=== PATIENT | male | born 1990 | race Caucasian/White ===

== ENCOUNTER 2020-06-05 01:16 | Emergency (ER) | payer OTHER, SELFPAY ==
[2020-06-05 01:17] VITALS: BP 114/69; PULSE 101; RESP 16; TEMP 36.1; O2SAT 95; BMI 23.7
--- NOTE | 2020-06-05 01:28 | RAD_ITS ---
STUDY: X-RAY - ABDOMEN/PELVIS REASON FOR EXAM: Male, 29 years old. Abdominal pain TECHNIQUE: Single AP view of the abdomen / pelvis. COMPARISON: None. FINDINGS: Normal visualized lung bases. There is an unremarkable bowel gas pattern. There is no demonstrated free abdominal air. The visualized liver, spleen and kidneys are grossly normal in size and morphology. Normal soft tissue structures. Normal visualized osseous structures. RAD/Abdomen Single View IMPRESSION: Normal x-ray examination of the abdomen and pelvis. Electronically Signed: Jamie Munoz MD at 2:02 EST Tel , Service support ,
--- NOTE | 2020-06-05 01:45 | CT_ITS ---
STUDY: CT ABDOMEN AND PELVIS WITH CONTRAST REASON FOR EXAM: Male, 29 years old. Bloody diarrhea. History of Crohn''s disease RADIATION DOSAGE (If Supplied By Facility): CTDIvol = ( 9.84 ) mGy, DLP = ( 473.04 ) mGycm TECHNIQUE: Transaxial images were obtained from the dome of the diaphragm to the symphysis pubis without oral contrast. IV- 100 ML ISOVUE 370 was administered. Sagittal and coronal images were reconstructed. Individualized dose optimization techniques were used for this CT. COMPARISON: None. FINDINGS: The visualized lung bases are unremarkable. The visualized portions of the heart are within normal limits. Normal liver. Normal gallbladder and extrahepatic biliary system. Normal spleen. Normal pancreas. Normal bilateral adrenal glands. Hypoattenuated lesion within the mid left kidney measuring near water density. Normal bilateral ureters. Normal visualized stomach. Normal small intestine. Concentric mucosal wall thickening of the transverse colon, splenic flexure, and to a lesser degree distal sigmoid colon. Mild associated inflammation of the pericolonic fat. The appendix is visualized and appears normal. Normal abdominal aorta. Normal inferior vena cava. Normal retroperitoneum. Normal urinary bladder. Normal abdominal wall. Normal osseous structures. CT/Abdomen/Pelvis W IV Cont ONLY IMPRESSION: 1. Multi segmental colitis, likely inflammatory in etiology. 2. Simple appearing mid left renal cyst. Electronically Signed: Jamie Munoz MD at 2:47 EST Tel , Service support ,
[2020-06-05 01:59] LABS: Absolute Lymphocyte Count 1.53 X10^3/uL (0.83-4.51); Basophil# 0.08 X10^3/uL; Basophil% 0.6 % (0-1); Eosinophil# 0.32 X10^3/uL; Eosinophils% 2.3 % (0-5); Hematocrit 44.2 % (40-54); Hemoglobin 14.4 g/dL (13.0-16.5); Lymphocyte # 1.53 X10^3/ul (4.0); Lymphocyte % 11.2 % (19-41); Mean Corp Hgb Conc 32.6 g/dL (32-36); Mean Corpuscular Hgb 28.2 pg (27.0-32.0); Mean Corpuscular Volume 86.7 fL (80-94); Mean Platelet Vol. 10.7 fl (6.2-12.0); Monocyte# 1.76 X10^3/uL; Monocyte% 12.8 % (0-10); NRBC Flagged by Analyzer 0 % (0-5); Neutrophil # 9.96 X10^3/uL (2.7-7.7); Neutrophil % 72.7 % (47-70); POSITIVE DIFFERENTIAL YES; Platelet Count 272 K/mm3 (150-450); RBC Distribution Width CV 13.1 % (11.6-14.6); RBC Distribution Width SD 40.3 fl (35.1-43.9); White Blood Count 13.7 K/mm3 (4.4-11.0)
[2020-06-05 02:00] LABS: Differential Indicated SCAN CRITERIA MET
--- NOTE | 2020-06-05 02:04 | ED.DCSUM_ITS ---
History of Present Illness Chief Complaint: Abd Pain Informant: Patient Narrative: 29-year-old male presents with abdominal pain. He tells me that for about a week he has felt like he has been having some mild Crohn's flare. He states he feels very constipated. Tells me he goes to the bathroom sits and strains very little comes out. States he feels a lot of pressure in his rectum. He is not currently on any Crohn's therapy due to lack of health insurance. 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 No fevers. Past Medical History - Allergies and Home Meds Allergies/Adverse Reactions: Allergies No Known Allergies Allergy (Verified 03/09/13 14:29) Primary Care Physician: Zain Freire III, MD [Primary Care Provider] - Past Medical History: - - Crohn's disease Surgical History: noncontributory Smoking Status: Current some day smoker Drugs: None Review of Systems General: Denies: Chills, Fever, Sweats Eyes: Denies: Visual changes - bilaterally, Diplopia ENT: Denies: Rhinorrhea, Sore throat Cardiovascular: Denies: Chest pain, Palpitations Respiratory: Denies: Dyspnea, Cough, Dyspnea on exertion Gastrointestinal: Reports: Abdominal pain, Nausea, Constipation, Hematochezia. Denies: Vomiting, Melena Genitourinary: Denies: Dysuria, Hematuria, Frequency Musculoskeletal: Denies: Back pain, Extremity Pain Skin: Denies: Rash, Wounds Neurological: Denies: Headache, Weakness, Numbness Physical Exam Vital Signs/Narrative: Vital Signs Temp Pulse Resp BP Pulse Ox 06/05/20 01:17 97 F L 101 H 16 114/69 95 Inital Vital Signs reviewed: Yes General: Well nourished, Well developed, No Acute Distress Head: Normocephalic, Atraumatic Eyes: Perrl, EOMI ENT: Moist mucous membranes, No rhinorrhea Neck: Supple, Nontender Cardiovascular: Regular rate, Regular rhythm, No murmurs Respiratory: No distress, CTA bilaterally, Chest nontender Abdomen: Soft, Nondistended, Normal bowel sounds, Tender. Negative for: Guar ding, Rebound tenderness Back: Nontender, Normal Inspection Extremities: Nontender, No edema Skin: Normal color, No rash Neurological: Alert, Oriented x3, Cranial nerves II-XII grossly intact, Normal Strength, Normal Sensation Psychological: Normal affect, Normal Mood Diagnostic/Tx/Re-eval Clinical Impression(s) from Imaging Studies KUB X-Ray 06/05/20 01:28 IMPRESSION: Normal x-ray examination of the abdomen and pelvis. Electronically Signed: Jamie Munoz MD at 2:02 EST Tel , Service support , Abdomen/Pelvis CT 06/05/20 01:45 IMPRESSION: 1. Multi segmental colitis, likely inflammatory in etiology. 2. Simple appearing mid left renal cyst. Electronically Signed: Jamie Munoz MD at 2:47 EST Tel , Service support , Laboratory Last Values WBC 13.7 K/mm3 (4.4-11.0) H 06/05/20 01:50 RBC 5.10 M/mm3 (4.6-6.2) 06/05/20 01:50 Hgb 14.4 g/dL (13.0-16.5) 06/05/20 01:50 Hct 44.2 % (40-54) 06/05/20 01:50 MCV 86.7 fL (80-94) 06/05/20 01:50 MCH 28.2 pg (27.0-32.0) 06/05/20 01:50 MCHC 32.6 g/dL (32-36) 06/05/20 01:50 RDW Std Deviation 40.3 fl (35.1-43.9) 06/05/20 01:50 RDW Coeff of Tavo 13.1 % (11.6-14.6) 06/05/20 01:50 Plt Count 272 K/mm3 (150-450) 06/05/20 01:50 MPV 10.7 fl (6.2-12.0) 06/05/20 01:50 Immature Gran % (Auto) 0.400 % (0.0-0.9) 06/05/20 01:50 Neut % (Auto) 72.7 % (47-70) H 06/05/20 01:50 Lymph % (Auto) 11.2 % (19-41) L 06/05/20 01:50 Dukes % (Auto) 12.8 % (0-10) H 06/05/20 01:50 Eos % (Auto) 2.3 % (0-5) 06/05/20 01:50 Baso % (Auto) 0.6 % (0-1) 06/05/20 01:50 Absolute Neuts (auto) 10.0 X10^3/uL (2.0-7.7) H 06/05/20 01:50 Absolute Lymphs (auto) 1.53 X10^3/uL (0.83-4.51) 06/05/20 01:50 Nucleated RBC % 0 % (0-5) 06/05/20 01:50 Differential Comment SCANNED 06/05/20 01:50 Diff Path Review September06/05/20 01:50 Platelet Estimate ADEQUATE (ADEQ) 06/05/20 01:50 Sodium 141 mmol/L (136-145) 06/05/20 01:50 Potassium 3.8 mmol/L (3.5-5.1) 06/05/20 01:50 Chloride 111 mmol/L (98-107) H 06/05/20 01:50 Carbon Dioxide 26.0 mmol/L (21.0-32.0) 06/05/20 01:50 Anion Gap 4 (5-15) L 06/05/20 01:50 BUN 10 mg/dL (7-18) 06/05/20 01:50 Creatinine 1.26 mg/dL (0.70-1.30) 06/05/20 01:50 Estim Creat Clear Calc 79.47 ml/min 06/05/20 01:50 Est GFR (MDRD) Af Amer 88 mL/min (>60) 06/05/20 01:50 Est GFR (MDRD) Non-Af 73 mL/min (>60) 06/05/20 01:50 BUN/Creatinine Ratio 7.9 RATIO (10-20) L 06/05/20 01:50 Glucose 83 mg/dL (74-106) 06/05/20 01:50 Calcium 8.6 mg/dL (8.5-10.1) 06/05/20 01:50 Total Bilirubin 0.40 mg/dL (0.20-1.00) 06/05/20 01:50 AST 21 U/L (15-37) 06/05/20 01:50 ALT 27 U/L (16-61) 06/05/20 01:50 Alkaline Phosphatase 95 U/L (45-117) 06/05/20 01:50 Total Protein 7.5 g/dL (6.4-8.2) 06/05/20 01:50 Albumin 3.7 g/dL (3.2-5.0) 06/05/20 01:50 Globulin 3.8 g/dL (2.2-4.2) 06/05/20 01:50 Albumin/Globulin Ratio 1.0 RATIO (0.9-2.4) 06/05/20 01:50 - Medical Decision Making Because the patient was complaining of constipation fullness in his rectum a plain film was ordered. My interpretation of the single view abdominal x-ray is no acute process and no fecal impaction. Therefore basic blood work and a CT of his abdomen pelvis was ordered. This demonstrated multifocal segments of inflammation. Given his history of Crohn's is most likely the source of the inflammation. He will be started on prednisone. Follow-up with his doctors return if worsening or concerns ED Disposition - Plan for ED Patient: Disposition: Home or Assisted Living Diagnosis: Exacerbation of Crohn's disease of large intestine Instructions: ED Crohn's Disease Prescriptions: Prednisone [Deltasone] 60 mg PO DAILY #15 tab Prescription Printed Referrals: Zain Freire III, MD [Primary Care Provider] - 3-5 Days if not improving
[2020-06-05 02:14] LABS: AST(SGOT) 21 U/L (15-37); Alanine Aminotransfer ALT/SGPT 27 U/L (16-61); Albumin, Serum 3.7 g/dL (3.2-5.0); Alkaline Phosphatase 95 U/L (45-117); Anion Gap 4 (5-15); BUN 10 mg/dL (7-18); BUN/Creat Ratio 7.9 RATIO (10-20); Calcium,Total 8.6 mg/dL (8.5-10.1); Chloride 111 mmol/L (98-107); Creatinine, Serum 1.26 mg/dL (0.70-1.30); EST Glomerular Filtration Rate 73 mL/min (>60); Est Glom Filt Rate - Afr Amer 88 mL/min (>60); Estimated Creatinine Clearance 79.47 ml/min; Globulin 3.8 g/dL (2.2-4.2); Glucose 83 mg/dL (74-106); Potassium 3.8 mmol/L (3.5-5.1); Protein, Total 7.5 g/dL (6.4-8.2); Sodium Level 141 mmol/L (136-145)
[2020-06-05 02:18] LABS: Differential Comment SCANNED; Platelet Estimate ADEQUATE (ADEQ)
[2020-06-05] MEDS: predniSONE 20 MG Tablet 60 MG PO (03:07)
[2020-06-05 03:11] VITALS: BP 133/81; PULSE 89; RESP 16; O2SAT 98
[2020-06-05 12:33] LABS: Pathologist Review Reviewed
== END 2020-06-05 03:12 | disposition home or self-care (01) ==
PROVIDERS: Emergency Provider Emergency Medicine; PCP Family Medicine
DX: K50.111 Crohn's disease of large intestine with rectal bleeding (principal); K59.00 Constipation, unspecified; K92.1 Melena; F17.200 Nicotine dependence, unspecified, uncomplicated
CPT/HCPCS: 74018; 74177; 80053; 85025; 99284; Q9967; A4216

== ENCOUNTER → 2020-11-04 10:39 | Outpatient (CLI) | payer OTHER, SELFPAY ==
[2020-11-04 12:20] LABS: Erythrocyte Sedimentation Rate 15 mm/hr (0-20)
[2020-11-04 12:23] LABS: Hematocrit 30.2 % (40-54); Mean Corp Hgb Conc 26.5 g/dL (32-36); Mean Corpuscular Volume 67.9 fL (80-94); Mean Platelet Vol. 11.8 fl (6.2-12.0); Platelet Count 255 K/mm3 (150-450); RBC Distribution Width CV 17.3 % (11.6-14.6); RBC Distribution Width SD 41.4 fl (35.1-43.9); Red Blood Count 4.45 M/mm3 (4.6-6.2); White Blood Count 6.4 K/mm3 (4.4-11.0)
[2020-11-04 12:38] LABS: AST(SGOT) 12 U/L (15-37); Alanine Aminotransfer ALT/SGPT 25 U/L (16-61); Albumin, Serum 3.5 g/dL (3.2-5.0); Alkaline Phosphatase 75 U/L (45-117); Anion Gap 4 (5-15); BUN 12 mg/dL (7-18); BUN/Creat Ratio 11.4 RATIO (10-20); CRP 3.66 mg/L (0.0-3.0); Calcium,Total 8.6 mg/dL (8.5-10.1); Chloride 112 mmol/L (98-107); Creatinine, Serum 1.05 mg/dL (0.70-1.30); EST Glomerular Filtration Rate 89 mL/min (>60); Est Glom Filt Rate - Afr Amer 108 mL/min (>60); Globulin 3.6 g/dL (2.2-4.2); Glucose 90 mg/dL (74-106); Potassium 4.2 mmol/L (3.5-5.1); Protein, Total 7.1 g/dL (6.4-8.2); Sodium Level 142 mmol/L (136-145)
== END ==
PROVIDERS: PCP Family Medicine; Referring Provider Internal Medicine Gastroenterology; Visit Provider Internal Medicine Gastroenterology
DX: K50.90 Crohn's disease, unspecified, without complications (principal)
CPT/HCPCS: 36415; 80053; 85027; 85652; 86140

== ENCOUNTER → 2020-11-19 | Outpatient (CLI) | payer OTHER, SELFPAY ==
--- NOTE | 2020-11-19 12:15 | COLBX_PTH ---
PATIENT: ELIDIA FUNG LOC: NIC U#:[id number] AGE/SX: 30/M ROOM: RE11/19/[address]: Dr. Hayden Rome MD : 1990 BED: DIS: 11/19/2020 SPEC #: [id number] RECD: 11/19/20 13:17 STATUS: JUAN REKelli #: [id number] BRAYAN: 11/19/20 12:[address]: Hayden Rome DEPT: SURGICAL PATHOLOGY RECD BY: Christine Ruggiero ENTERED: 11/20/20 09:09 SP TYPE: COLON BX FREDA DR: Dr. Zain Freire III, MD [facility] Tissues: A - COLON BIOPSY B - Ileum, NOS C - Transverse colon D - Rectum, NOS Procedures: Surgery Specimen Level IV HEADER OPERATION: Colonoscopy with biopsy PRE-OP DIAGNOSIS: Diarrhea, colitis TISSUE SUBMITTED: A - Right colon biopsy, rule out Crohn?s/ulcerative colitis, B - Terminal ileum biopsy, rule out Crohn?s, C - Transverse/left colon biopsy, rule out ulcerative colitis, D - Rectum biopsy, rule out ulcerative colitis MICROSCOPIC DIAGNOSIS A. Right colon, biopsy: Focal mucosal hemorrhage. Focal acute colitis. See microscopic description. B. Terminal ileum, biopsy: No pathologic change. C. Transverse colon, biopsy: Chronic active colitis pattern of injury with mild to moderate activity. No evidence of dysplasia. See microscopic description. D. Rectum, biopsy: Chronic active colitis pattern of injury with mild to moderate activity. No evidence of dysplasia. See microscopic description. AM:cammy 11/23/2020 MICROSCOPIC DESCRIPTION Slides are reviewed. A. Sections show crypt abscess formation. There is no significant glandular distortion. C & D. Sections show glandular distortion, cryptitis and crypt abscesses. Fissuring ulcers are not seen. Transmural lymphoid aggregates are not identified. The findings are consistent with chronic active inflammatory bowel disease. GROSS DESCRIPTION A - Received in fixative is one container labeled with the patient's name and designated right colon. The specimen consists of multiple irregular fragments of light botello soft tissue that in aggregate measure 0.6 x 0.2 x 0.1 cm. The specimen is totally submitted in one cassette. B - Received in fixative is one container labeled with the patient's name and designated terminal ileum. The specimen consists of multiple irregular fragments of light botello soft tissue that in aggregate measure 1 x 0.5 x 0.1 cm. The specimen is totally submitted in one cassette. C - Received in fixative is one container labeled with the patient's name and designated transverse/left colon. The specimen consists of multiple irregular fragments of light botello soft tissue that in aggregate measure 1 x 0.4 x 0.1 cm. The specimen is totally submitted in one cassette. D - Received in fixative is one container labeled with the patient's name and designated rectum. The specimen consists of multiple irregular fragments of light botello soft tissue that in aggregate measure 0.5 x 0.2 x 0.1 cm. The specimen is totally submitted in one cassette. / SJ:rg 11/20/20 TC:2 CPT: 99454 x4
== END | disposition home or self-care (01) ==
LOC: LABSPEC 13:28
PROVIDERS: PCP Family Medicine; Visit Provider Internal Medicine Gastroenterology
DX: K52.9 Noninfective gastroenteritis and colitis, unspecified (principal)
CPT/HCPCS: 87493; 88305

== ENCOUNTER → 2020-11-20 14:27 | Outpatient (CLI) | payer OTHER, SELFPAY ==
[2020-11-21 11:25] LABS: Hepatitis B Surface Antigen Non-Reactive (Nonreactive)
[2020-11-23 16:08] LABS: QNTFERON TB Mitogen Value 6.91 IU/mL (.); QNTFERON TB Nil Value 0 IU/mL (.); QNTFERON TB1+ Ag Value 0 IU/mL (.); QNTFERON TB2+ Ag Value 0 IU/mL (.)
[2020-11-25 16:41] LABS: QNTIFERON TB Positive Criteria Negative (Negative)
== END ==
PROVIDERS: PCP Family Medicine; Referring Provider Internal Medicine Gastroenterology; Visit Provider Internal Medicine Gastroenterology
DX: K50.90 Crohn's disease, unspecified, without complications (principal)
CPT/HCPCS: 36415; 86480; 87340

== ENCOUNTER → 2021-04-30 15:07 | Outpatient (CLI) | payer OTHER, SELFPAY ==
[2021-04-30 17:27] LABS: Hematocrit 34.4 % (40-54); Mean Corp Hgb Conc 26.2 g/dL (32-36); Mean Corpuscular Hgb 16.1 pg (27.0-32.0); Mean Corpuscular Volume 61.5 fL (80-94); POSITIVE MORPHOLOGY YES; Platelet Count 333 K/mm3 (150-450); RBC Distribution Width CV 21.3 % (11.6-14.6); RBC Distribution Width SD 43.2 fl (35.1-43.9); Red Blood Count 5.59 M/mm3 (4.6-6.2); White Blood Count 7.1 K/mm3 (4.4-11.0)
[2021-04-30 17:51] LABS: Scan Indicated on CBC? Y/N YES- FLAGS NOTED
[2021-04-30 17:59] LABS: AST(SGOT) 52 U/L (15-37); Alanine Aminotransfer ALT/SGPT 29 U/L (16-61); Albumin, Serum 3.8 g/dL (3.2-5.0); Alkaline Phosphatase 69 U/L (45-117); Anion Gap 7 (5-15); BUN 11 mg/dL (7-18); BUN/Creat Ratio 10.3 RATIO (10-20); Calcium,Total 8.3 mg/dL (8.5-10.1); Chloride 108 mmol/L (98-107); Creatinine, Serum 1.07 mg/dL (0.70-1.30); EST Glomerular Filtration Rate 87 mL/min (>60); Est Glom Filt Rate - Afr Amer 105 mL/min (>60); Globulin 3.7 g/dL (2.2-4.2); Glucose 87 mg/dL (74-106); Potassium 3.6 mmol/L (3.5-5.1); Protein, Total 7.5 g/dL (6.4-8.2); Sodium Level 141 mmol/L (136-145)
[2021-04-30 18:14] LABS: Differential Comment SCANNED; Erythrocyte Sedimentation Rate 14 mm/hr (0-20)
== END ==
PROVIDERS: PCP Family Medicine; Referring Provider Internal Medicine Gastroenterology; Visit Provider Internal Medicine Gastroenterology
DX: K51.90 Ulcerative colitis, unspecified, without complications (principal)
CPT/HCPCS: 36415; 80053; 85027; 85652

== ENCOUNTER → 2021-11-01 | Outpatient (CLI) | payer OTHER, SELFPAY ==
[2021-11-01 17:43] LABS: Hematocrit 48.3 % (40-54); Mean Corp Hgb Conc 31.1 g/dL (32-36); Mean Corpuscular Hgb 25.4 pg (27.0-32.0); Mean Corpuscular Volume 81.7 fL (80-94); Mean Platelet Vol. 11.7 fl (6.2-12.0); POSITIVE MORPHOLOGY YES; Platelet Count 200 K/mm3 (150-450); RBC Distribution Width CV 21.4 % (11.6-14.6); RBC Distribution Width SD 62.1 fl (35.1-43.9); Red Blood Count 5.91 M/mm3 (4.6-6.2)
[2021-11-01 17:50] LABS: Scan Indicated on CBC? Y/N YES- FLAGS NOTED
[2021-11-01 17:58] LABS: Erythrocyte Sedimentation Rate 8 mm/hr (0-20)
[2021-11-01 18:19] LABS: White Blood Count 6.5 K/mm3 (4.4-11.0)
[2021-11-01 18:38] LABS: CRP < 2.90 mg/L (0.0-3.0); Ferritin 13 ng/mL (26-388); Iron 112 ug/dL (65-175)
== END | disposition home or self-care (01) ==
LOC: MTLAB 15:03
PROVIDERS: Referring Provider Internal Medicine Gastroenterology; Visit Provider Internal Medicine Gastroenterology
DX: K51.90 Ulcerative colitis, unspecified, without complications (principal)
CPT/HCPCS: 36415; 82728; 83540; 85027; 85652; 86140

== ENCOUNTER → 2023-03-17 | Outpatient (CLI) | payer OTHER, SELFPAY ==
--- NOTE | 2023-03-17 08:35 | RAD_ITS ---
STUDY: X-RAY - ESOPHAGUS (BARIUM SWALLOW) WITH FLUOROSCOPY REASON FOR EXAM: Male, 32 years old. DYSPHAGIA TECHNIQUE: 16 view(s) of the esophagus were obtained following swallowing of barium. FLUOROSCOPY TIME (if supplied): (24 seconds) minutes/seconds. 8.15 mGy COMPARISON: None. FINDINGS: There is no demonstrated esophageal foreign body. There is no demonstrated stricture or mucosal abnormality. Normal gastroesophageal junction, without a demonstrated hiatal hernia. The patient ingested a 12 mm tablet at bedtime without any difficulty. Normal visualized aortic arch and descending thoracic aorta. Normal visualized pulmonary parenchyma. Normal visualized osseous structures of the thorax. RAD/Esophagus Dual Contrast IMPRESSION: Normal plain film x-ray examination (barium swallow) of the esophagus. Electronically Signed: Raheel Augustine MD at 9:16 EDT ,
== END | disposition home or self-care (01) ==
PROVIDERS: Referring Provider Internal Medicine Gastroenterology; Visit Provider Internal Medicine Gastroenterology
DX: R13.10 Dysphagia, unspecified (principal)
CPT/HCPCS: 74221

== ENCOUNTER → 2023-08-22 | Outpatient (CLI) | payer OTHER, SELFPAY | END | disposition home or self-care (01) | PROVIDERS: Referring Provider Internal Medicine Gastroenterology; Visit Provider Internal Medicine Gastroenterology | DX: K51.90 Ulcerative colitis, unspecified, without complications (principal) | CPT/HCPCS: 36415 ==

== ENCOUNTER 2024-01-22 09:41 | Day surgery (SDC) | payer OTHER, SELFPAY ==
[2024-01-22] VITALS (8 sets, daily range): BP systolic 99–125; BP diastolic 57–84; PULSE 66–77; RESP 16; TEMP 36.2–36.5; O2SAT 96–99; BMI 24.5
[2024-01-22] MEDS: Lactated Ringers 1,000 ML 15 ML IV (10:12)
--- NOTE | 2024-01-22 10:18 | PCM.HP.BLA ---
History and Physical Date of Admission: 01/22/24 33 M who presents to the office today for initial consult. *BGI established 8.6.24 pt reports that he has a previous diagnosis of Crohn's and that he has been on Entyvio infusions for about 2 years now, his last colonoscopy was a year ago. Pt reports that he was diagnosed with EOE and that his last EGD was [address] Rome and he dilated his throat and discussed going on medication for EOE, but pt's insurance would not cover it at the time. Pt reports EOE symptoms are manageable. Pt states that he has a loose bm per day; denies blood in the stool. Pt notes bloating when he drinks alcohol, which is infrequent. Pt notes that when he plays soccer he sometimes has trouble catching his breath. ROS Const Constitutional: No fatigue, fever(s) or weight change ENT ENT: No difficulty swallowing Gastro GI: Positive for bloating, constipation and excessive flatus; No abdominal pain, belching, change in bowel habits, change in stool character, coffee ground emesis, cramping, diarrhea, heartburn, difficulty swallowing, feeling full early, incontinent of stools, Vomiting blood/hematemesis, Blood in stool, loose stools, Black,tarry stools, nausea/dyspepsia, pain with swallowing, vomiting or other Musc Musculoskeletal: Positive for joint pain, Arthritis and sciatica Skin Skin: Positive for rash; No yellowing of the eye or itchy eyes Psych Psychiatric: Positive for anxiety and No depression Endo Endocrine: No fatigue or weight change Aller/Imm Allergy/Immunologic: No itchy eyes Roel/Lymp Hematologic/Lymphatic: No easy bleeding or easy bruising Exam Const General: cooperative and comfortable Nutritional Appearance: average body habitus and well nourished [facility] Head: normal to inspection Ears: hearing grossly normal bilaterally Nose: external nose normal Face and sinus: normal facial exam Mouth: oral mucosae normal Throat: posterior oropharynx normal Eyes General: appearance normal, both eyes and all related structures Neck Neck: normal visual inspection Chest Chest palpation & inspection: normal inspection of the chest and normal palpation of entire chest wall Resp Effort & Inspection: normal respiratory effort Auscultation: Bilateral: Clear to Auscultation Cardio Palpation: normal PMI Rate: regular rate Rhythm: regular rhythm GI Inspection: normal to inspection Auscultation: normal bowel sounds Percussion: normal to percussion Palpation: no hepatosplenomegaly Skin General: no rashes or lesions noted Neuro General: patient alert Extrem General: normal to inspection Psych Affect: normal affect Assessment and Plan Assessment and Plan (1) Crohn disease: Status: Acute Plan: 33-year-old gentleman with a longstanding history of Crohn's disease that was refractory to mesalamine based therapy. Currently he is on Entyvio therapy every 8 weeks. He is never had any extraintestinal manifestations of Crohn's disease such as arthritis, iritis, uveitis, cholangitis, psoriasis. He is doing very well with his diet and responds very well to Entyvio therapy. He will need a surveillance colonoscopy. He was explained alternatives, risk, benefits including not withstanding bleeding, infection, sepsis, perforation, need emergency or urgent . Have an ASA of 3. (2) Eosinophilic esophagitis: Status: Acute Plan: He has undergone esophageal dilation in the past for eosinophilic esophagitis. I recommend low-dose PPI therapy for him to see if it controls his symptoms. We discussed possibly going on Dupixent therapy. However he may be PPI responsive. I have examined the patient and the H&P has been reviewed. There are no clinical changes since date of exam.
--- NOTE | 2024-01-22 10:45 | COLBX_PTH ---
PATIENT: ELIDIA FUNG LOC: EN U#:[id number] AGE/SX: 33/M ROOM: RE01/22/[address]: Dr. Ahmet Winters DO : 1990 BED: DIS: 01/22/2024 SPEC #: [id number] RECD: 01/22/24 13:13 STATUS: JUAN MARKOS #: [id number] BRAYAN: 01/22/24 10:[address]: Ahmet Winters DEPT: SURGICAL PATHOLOGY RECD BY: Christine Ruggiero ENTERED: 01/22/24 13:51 SP TYPE: COLON BX OTHR DR: Jocelyne Primary Care Phys Tissues: A - Ileum, NOS B - COLON BIOPSY C - Rectum, NOS Procedures: Surgery Specimen Level IV HEADER OPERATION: Colonoscopy with biopsy PRE-OP DIAGNOSIS: Crohn's disease TISSUE SUBMITTED: A- Terminal ileum biopsy, B- Random colon biopsy, C- Rectum biopsy MICROSCOPIC DIAGNOSIS A. Terminal ileum, biopsy: No pathologic change. B. Colon, random biopsy: No pathologic change. C. Rectum, biopsy: No pathologic change. AM.mr 01/23/2024 MICROSCOPIC DESCRIPTION Slides are reviewed. GROSS DESCRIPTION A. Received in fixative is one container labeled with the patient's name and designated Terminal ileum biopsy. The specimen consists of multiple irregular fragments of light botello soft tissue that in aggregate measure 0.7 x 0.5 x 0.1 cm. The specimen is totally submitted in one cassette. B. Received in fixative is one container labeled with the patient's name and designated Random colon biopsy. The specimen consists of multiple irregular fragments of light botello soft tissue that in aggregate measure 2.0 x 0.1 x 0.1 cm. The specimen is totally submitted in one cassette. C. Received in fixative is one container labeled with the patient's name and designated Rectum biopsy. The specimen consists of one irregular fragment of light botello soft tissue that measures 0.7 x 0.6 x 0.1 cm. The specimen is totally submitted in one cassette. AM/ 01/22/2024 TC:[id number]
--- NOTE | 2024-01-22 10:49 | PRE.ANES_ITS ---
ASA Classification* ASA Classification ASA Classification: 2 Assessment & Plan Anesthesia* Anesthesia Assessment Anesthesia Assessment: Discussed sedation and/or anesthesia options, risks, benefits, and alternatives with patient/parents/legal guardian/POA. Questions invited. The patient/parents/legal guardian/POA seems to understand and agrees to proceed with anesthesia plan. Reviewed the physical assessment, medical history, allergy history and patient home medications list prior to surgery/procedure/anesthetic and documented any changes. Performed airway and anesthesia risk assessments. Anesthesia Type Anesthesia Type: MAC History Source History Obtained from:: Patient and Chart Anesthesia Focused Assessment* Temperature: 97.7 F Pulse Rate: 77 Blood Pressure: 125/84 Respiratory Rate: 16 Pulse Ox: 96 Oxygen Delivery Method: Room Air Airway Assessment Mouth opens: >3 cm Mallampati Score: II Teeth Condition: Intact Neck Range of motion (ROM): Full ROM Focused Labs Anesthesia Preop lab: CBC WBC 6.5 K/mm3 (4.4-11.0) 11/01/21 15:05 RBC 5.91 M/mm3 (4.6-6.2) 11/01/21 15:05 Hgb 15.0 g/dL (13.0-16.5) 11/01/21 15:05 Hct 48.3 % (40-54) 11/01/21 15:05 Plt Count 200 K/mm3 (150-450) 11/01/21 15:05 CHEMISTRY Potassium 3.6 mmol/L (3.5-5.1) 04/30/21 15:17 Sodium 141 mmol/L (136-145) 04/30/21 15:17 BUN 11 mg/dL (7-18) 04/30/21 15:17 Creatinine 1.07 mg/dL (0.70-1.30) 04/30/21 15:17 Glucose 87 mg/dL (74-106) 04/30/21 15:17 COAG Pre-Assessment Diagnosis/Proposed Procedure Planned Operative Procedure(s): COLONOSCOPY Anesthesia History Anesthesia History - mental health coordinator: Anesthesia History - mental health coordinator Hx Hospitalization No 01/17/24 11:06 Any Problems With Anesthesia No 01/17/24 11:06 Cholinesterase deficiency No 01/17/24 11:06 You/Your Family Experience No 01/17/24 11:06 fever (hyperthermia) with Relationship Recent Exposure to Contagious No 01/22/24 10:01 Disease Does patient have nerve No 01/17/24 11:06 stimulator Patient instructed to have device shut off --Does patient have Pacemaker No 01/22/24 10:01 or ICD? When Was Last Pacemaker Check QUESTION #4 FULL TEXT: You/Your Family Experience fever (hyperthermia) with Anesthesia Any additional information?: No Last Oral Intake Last Oral intake: Last Oral Intake NPO since 07:00 01/22/24 10:01 Meds taken in AM with sips of water? Meds patient instructed to take am of surgery Any additional information?: No PONV PONV - mental health coordinator: PONV - mental health coordinator Female No 01/17/24 11:06 HX of Motion Sickness No 01/17/24 11:06 HX of N/V After Surgery No 01/17/24 11:06 Non-Smoker No 01/17/24 11:06 Duration of Surgery greater No 01/17/24 11:06 than 60 minutes Number of Risk Factors PONV Score Any additional information?: No Height & Weight Height & Weight: Anesthesia: Height & Weight Height 5 ft 6 in 01/22/24 10:01 Weight: 69 kg 01/22/24 10:01 Body Mass Index (BMI) 24.5 01/22/24 10:01 Respiratory Assessment Respiratory Assessment - mental health coordinator: Respiratory Tract Infection Hx - mental health coordinator Hx Respiratory Tract Infection No 01/17/24 11:06 Any additional information?: No STOP Sleep Apnea STOP Sleep Apnea - mental health coordinator: STOP Sleep Apnea - mental health coordinator Hx Hypertension No 01/17/24 11:06 Hx Sleep Apnea No 01/17/24 11:06 CPAP BIPAP Do you snore loudly (louder No 01/17/24 11:06 than talking or can be heard Do you often feel tired/ No 01/17/24 11:06 fatigued/ sleepy during daytime? Has anyone observed you stop No 01/17/24 11:06 breathing during sleep? STOP Results Negative 01/17/24 11:06 QUESTION #5 FULL TEXT : Do you snore loudly (louder than talking or can be heard through closed doors)? Any additional information?: No Tobacco Use History Tobacco Use History - mental health coordinator: Tobacco Use History - mental health coordinator Tobacco Use Smoking Status Current some day smoker 01/17/24 11:06 Hx Tobacco Use No 01/17/24 11:06 Years Smoking Packs Smoked per Day Smoking Cessation Date was within the last 15 years Hx Smoking Cessation Date Hx Smoking Cessation Counseling Any additional information?: No Hematologic Medial History Hematologic Hx - mental health coordinator: Hematologic Medical Hx - documentation specialist Hx of Blood Transfusion No 01/17/24 11:06 Hx of Transfusion in last 3 No 01/17/24 11:06 Months Date of Last Transfusion (if within last 3 months) Ever experience any problems No 01/17/24 11:06 with transfusion(s)? Specify any problems Hx of Preganancy in last 3 N/A 01/17/24 11:06 Months Nurse Filling Out Transfusion VCHRISTIN 01/17/24 11:06 & Questions: Date: 01/17/24 01/17/24 11:06 Time: 11:07 01/17/24 11:06 Patient unable to answer at this time (ie. confused, unrespo Any additional information?: No /Reproduction History /Reproductive History - mental health coordinator: /Reproductive Hx- mental health coordinator Hx Now Gestational Age (in weeks): EDC: Hx Hx Para Hx Section SAB Any additional information?: No Active Medications Active Medications: Current Medications Generic Name Dose Route Start Last Admin Trade Name Uzma PRN Reason Stop Dose Admin Lactated Ringer's 1,000 mls @ 15 mls/hr 01/22/24 10:00 01/22/24 10:12 IV 15 mls/hr .Q48H ROBIN Administration PFSH Medical History (Updated 01/17/24 @ 11:06 by Irene Song) Wears glasses History of steroid therapy Anemia Back pain History of Crohn's disease Chewing tobacco dependence Home Medications ?Medication ?Instructions ?Recorded ?Last Taken ?Type omeprazole 20 mg capsule,delayed 20 mg PO BID #60 caps 01/02/24 Unknown Rx release vedolizumab 300 mg intravenous 300 mg .Route [id number] 01/02/24 Unknown History solution (Entyvio) ascorbic acid (vitamin C) 500 mg 500 mg PO DAILY 01/17/24 Unknown History tablet,extended release (C Complex) Allergy/AdvReac Type Severity Reaction Status Date / Time No Known Allergies Allergy Verified 01/22/24 10:01 no significant family history Surgical History (Updated 01/17/24 @ 11:06 by Irene Song) Hx of colonoscopy History of tonsillectomy and adenoidectomy Hx of arthroscopy of shoulder Social History Smoking Status: Current some day smoker tobacco type: smokeless tobacco Review of Systems (Anesthesia) ROS Narrative System reviewed and no additional complaints, except as documented. Physical Exam Const alert and oriented x3 Orientation / Consciousness: awake HEENT dentition normal Neck full ROM Resp normal respiratory effort and normal air movement Cardio regular rate and regular rhythm Back/Spine normal ROM Extremity full ROM Skin Rashes: no rashes Neuro oriented x3 and moves all extremities Motor Exam: muscle tone normal throughout
--- NOTE | 2024-01-22 11:58 | OP.CCLET_ITS ---
01/22/2024 No Primary Care Physician Re : Colonoscopy procedure for John Cheema Dear Care Physician This procedure was performed on Monday, January 22, 2024. My impressions and recommendations are as follows: Impressions : - Simple Endoscopic Score for Crohn's Disease: 10, mucosal inflammatory changes secondary to Crohn's disease. Biopsied. - Congested mucosa in the terminal ileum. Biopsied. Recommendations : - Discharge patient to home. - Resume previous diet PRN. - Continue present medications. - Repeat colonoscopy in 1 year to assess disease activity. My findings are described in the full procedure note, which is enclosed. If I can be of further assistance, please feel free to contact me at . Sincerely, Ahmet Winters, 01/22/2024 11:58:04 AM This report has been signed electronically.
--- NOTE | 2024-01-22 11:58 | OP.COLON_ITS ---
Patient Name: John Cheema Procedure Date: 01/22/2024 11:30 AM Date of : 1990 Age: 33 Procedure: Colonoscopy Indications: Crohn's disease of the small bowel and colon Providers: Ahmet Winters DO Medicines: Monitored Anesthesia Care Patient Profile: This is a 33 year old male. Refer to note in patient chart for documentation of history and physical. Last Colonoscopy: within the past 3 years. Complications: No immediate complications. Procedure: Pre-Anesthesia Assessment: - Prior to the procedure, a History and Physical was performed, and patient medications and allergies were reviewed. The patient is competent. The risks and benefits of the procedure and the sedation options and risks were discussed with the patient. All questions were answered and informed consent was obtained. Patient identification and proposed procedure were verified in the pre-procedure area. Mental Status Examination: alert and oriented. Airway Examination: normal oropharyngeal airway and neck mobility. Respiratory Examination: clear to auscultation. CV Examination: normal. Prophylactic Antibiotics: The patient does not require prophylactic antibiotics. Prior Anticoagulants: The patient has taken no anticoagulant or antiplatelet agents. ASA Grade Assessment: II - A patient with mild systemic disease. After reviewing the risks and benefits, the patient was deemed in satisfactory condition to undergo the procedure. The anesthesia plan was to use monitored anesthesia care (MAC). Immediately prior to administration of medications, the patient was re-assessed for adequacy to receive sedatives. The heart rate, respiratory rate, oxygen saturations, blood pressure, adequacy of pulmonary ventilation, and response to care were monitored throughout the procedure. The physical status of the patient was re-assessed after the procedure. After I obtained informed consent, the scope was passed under direct vision. Throughout the procedure, the patient's blood pressure, pulse, and oxygen saturations were monitored continuously. The was introduced through the anus and advanced to the terminal ileum. The colonoscopy was performed without difficulty. The patient tolerated the procedure well. The quality of the bowel preparation was adequate. Scope In: 11:42:00 AM Scope Withdrawal Time 0 hours 7 minutes 21 seconds Scope Out: 11:52:11 AM Total Procedure Duration Time 0 hours 10 minutes 11 seconds Findings: The perianal and digital rectal examinations were normal. The Simple Endoscopic Score for Crohn's Disease was determined based on the endoscopic appearance of the mucosa in the following segments: - Ileum: Findings include aphthous ulcers less than 0.5 cm in size, less than 10% ulcerated surfaces, a single narrowing that can be passed and no ulcers present, no ulcerated surfaces, no affected surfaces and no narrowings. Segment score: 3. - Right Colon: Findings include no ulcers present, no ulcerated surfaces, 50-75% of surfaces affected and no narrowings. Segment score: 2. - Transverse Colon: Findings include no ulcers present, no ulcerated surfaces, no affected surfaces and no narrowings. Segment score: 0. - Left Colon: Findings include aphthous ulcers less than 0.5 cm in size, greater than 30% ulcerated surfaces, less than 50% of surfaces affected and no narrowings. Segment score: 5. - Rectum: Findings include no ulcers present, no ulcerated surfaces, no affected surfaces and no narrowings. Segment score: 0. - Total SES-CD aggregate score: 10. Biopsies were taken with a cold forceps for histology. Verification of patient identification for the specimen was done. Estimated blood loss was minimal. A patchy area of the terminal ileum was congested. Biopsies were taken with a cold forceps for histology. Verification of patient identification for the specimen was done. Estimated blood loss was minimal. Impression: - Simple Endoscopic Score for Crohn's Disease: 10, mucosal inflammatory changes secondary to Crohn's disease. Biopsied. - Congested mucosa in the terminal ileum. Biopsied. Recommendation: - Discharge patient to home. - Resume previous diet PRN. - Continue present medications. - Repeat colonoscopy in 1 year to assess disease activity. Procedure Code(s): --- Professional --- 53193, Colonoscopy, flexible; with biopsy, single or multiple CPT copyright 2021 [employer]. All rights reserved. The codes documented in this report are preliminary and upon pre coder review may be revised to meet current compliance requirements. Ahmet Winters DO 01/22/2024 11:58:04 AM This report has been signed electronically. Number of Addenda: 0 Note Initiated On: 01/22/2024 11:30 AM
--- NOTE | 2024-01-22 11:58 | PCM.POST.ANE ---
Anesthesia: Postop Eval I Current Vital Signs Temperature: 97.2 F Pulse Rate: 76 Blood Pressure: 99/57 Respiratory Rate: 16 Pulse Ox: 97 Oxygen Delivery Method: Room Air Assessment Airway patent: Yes Spontaneous unlabored respirations: Yes Mental status: Awake and Calm nausea: No Vomiting: No Anesthesia Complication: No Fluid Hydration Crystalloid volume administer (ml): 300 Total IV fluid infused: 300 Progress Note Anesthesia document: Postop Eval 1 completed: Yes
--- NOTE | 2024-01-22 13:02 | SUR.PHASEII ---
PATIENT WAS TIRED OF WAITING FOR THE EYE OINTMENT. THIS NURSE HAS CALLED PHARMACY 3 TIMES. PATIENT SAID HIS EYE IS BETTER SO HE SAID HE DOESN'T NEED IT. PATIENT'S EYE LOOKS BETTER AND HE IS ABLE TO KEEP IT OPEN.
--- NOTE | 2024-01-22 13:47 | POSTOPAN2_ITS ---
Anesthesia Postop Eval I Sum Postop Eval Completion status Anesthesia document: Postop Eval 1 completed: Yes Anesthesia Postop Eval I Summary Anesthesia Postop Eval I Summary: Anesthesia Postop Eval I: Assessment Summary Airway patent Yes 01/22/24 11:59 [email or web address] [email or web address] Spontaneous unlabored Yes 01/22/24 11:59 CHILD [email or web address] respirations Mental status Awake,Calm 01/22/24 11:59 CHILD [email or web address] nausea No 01/22/24 11:59 CHILD [email or web address] Vomiting No 01/22/24 11:59 CHILD [email or web address] Anesthesia Postop Eval I: Fluid Summary Crystalloid volume administer 300 01/22/24 11:59 CHILD [email or web address] (ml) Colloids volume administered ( ml) Blood Product volume administered (ml) Total IV fluid infused 300 01/22/24 11:59 CHILD [email or web address] Anesthesia Postop Eval I: Summary Notes Anesthesia Complication No 01/22/24 11:59 CHILD [email or web address] Anesthesia Complication Comment: Post-operative progress note Anesthesia: Postop Eval II Evaluation Mental status: Awake and Calm Pain Level: 0 nausea: No Vomiting: No Progress Note Post-operative progress note: Left eye irritated and unable to open it. Warm compress applied. Erythromycin ointment ordered. After awhile, ointment still has not arrived but eye is getting better. Patient elected to go home as long as eye is improving. Complications Anesthesia Complication: No
--- NOTE | 2024-01-22 13:47 | PCM.POSTANE2 ---
Anesthesia Postop Eval I Sum Postop Eval Completion status Anesthesia document: Postop Eval 1 completed: Yes Anesthesia Postop Eval I Summary Anesthesia Postop Eval I Summary: Anesthesia Postop Eval I: Assessment Summary Airway patent Yes 01/22/24 11:59 [email or web address] Spontaneous unlabored Yes 01/22/24 11:59 [email or web address] [email or web address] respirations Mental status Awake,Calm 01/22/24 11:59 [email or web address] nausea No 01/22/24 11:59 PRINT [email or web address] Vomiting No 01/22/24 11:59 [email or web address] [email or web address] Anesthesia Postop Eval I: Fluid Summary Crystalloid volume administer 300 01/22/24 11:59 [email or web address] (ml) Colloids volume administered ( ml) Blood Product volume administered (ml) Total IV fluid infused 300 01/22/24 11:59 [email or web address] Anesthesia Postop Eval I: Summary Notes Anesthesia Complication No 01/22/24 11:59 PRINT [email or web address] Anesthesia Complication Comment: Post-operative progress note Anesthesia: Postop Eval II Evaluation Mental status: Awake and Calm Pain Level: 0 nausea: No Vomiting: No Progress Note Post-operative progress note: Left eye irritated and unable to open it. Warm compress applied. Erythromycin ointment ordered. After awhile, ointment still has not arrived but eye is getting better. Patient elected to go home as long as eye is improving. Complications Anesthesia Complication: No
== END 2024-01-22 13:05 | disposition home or self-care (01) ==
LOC: EN 09:43 → AC 09:44
PROVIDERS: Visit Provider Internal Medicine Gastroenterology
PROC: 0DJD8ZZ Inspection of Lower Intestinal Tract, Via Natural or Artificial Opening Endoscopic (ICD-10-PCS; CPT 45378; principal; 2024-01-22 10:40)
DX: K50.90 Crohn's disease, unspecified, without complications (principal); K20.0 Eosinophilic esophagitis; F41.9 Anxiety disorder, unspecified; F32.A Depression, unspecified; K12.0 Recurrent oral aphthae; Z79.899 Other long term (current) drug therapy; F17.220 Nicotine dependence, chewing tobacco, uncomplicated
CPT/HCPCS: 45380; 88305; J7120